=== PATIENT | female | born 1930 | race Caucasian/White ===

== ENCOUNTER → 2016-10-16 | Outpatient (CLI) | payer OTHER, MEDICARE ==
[~2016-10-16] MED LIST: BNT10 PO; CLON0.5T20 PO; DICL50TA3 PO; DULO60CA44 PO; FERR325T5 PO; HYDR-5688 PO; LEVO25TA PO; METO50TA17 PO; MRLP17X; PANT40TA PO; PRED10TA PO; PROM25TA9 PO
[2016-10-16 13:24] LABS: BASO % 0.8 %; BASO ABS # 0.05 K/uL (0-0.2); COMPLETE YES; EOS % 5.3 %; HEMATOCRIT 41.4 % (37-47); IG% 0.2 %; LYMPH % 22.8 %; LYMPH ABS # 1.39 K/uL (1.2-3.4); MEAN CELL VOLUME 96.7 fL (80-100); MEAN CORPUSCULAR HEMOGLOBIN 32.2 pg (25-34); MEAN CORPUSCULAR HGB CONC 33.3 g/dl (32-36); MONO % 10.8 %; NEUT % 60.1 %; PLATELET COUNT 267 K/uL (130-400); RED BLOOD COUNT 4.28 M/uL (4.2-5.4); WHITE BLOOD COUNT 6.09 K/uL (4.8-10.8)
== END | disposition home or self-care (01) ==
LOC: C.LABBC 10:00
PROVIDERS: ATTEND Anesthesiology
DX: Z01.812 Encounter for preprocedural laboratory examination (principal)

== ENCOUNTER → 2016-11-25 | Outpatient (CLI) | payer OTHER, MEDICARE ==
[2016-11-25 17:08] LABS: BASO % 0.7 %; BASO ABS # 0.05 K/uL (0-0.2); COMPLETE YES; EOS % 2.6 %; HEMATOCRIT 41.9 % (37-47); IG% 0.1 %; LYMPH % 24.6 %; LYMPH ABS # 1.78 K/uL (1.2-3.4); MEAN CELL VOLUME 98.4 fL (80-100); MEAN CORPUSCULAR HEMOGLOBIN 32.6 pg (25-34); MEAN CORPUSCULAR HGB CONC 33.2 g/dl (32-36); MEAN PLATELET VOLUME 10.6 fL (7.4-10.4); MONO % 6.5 %; NEUT % 65.5 %; PLATELET COUNT 304 K/uL (130-400); RED BLOOD COUNT 4.26 M/uL (4.2-5.4); WHITE BLOOD COUNT 7.24 K/uL (4.8-10.8)
[2016-11-25 17:45] LABS: ALT/SGPT 22 U/L (12-78); AST/SGOT 14 U/L (15-37); BLOOD UREA NITROGEN 14 mg/dl (7-18); BUN/CREATININE RATIO 15.2 (10-20); CALCIUM 9.1 mg/dl (8.5-10.1); CARBON DIOXIDE 27 mmol/L (21-32); CHLORIDE 105 mmol/L (98-107); CREATININE 0.91 mg/dl (0.60-1.20); GLUCOSE 115 mg/dl (70-99); MAGNESIUM 2.2 mg/dl (1.8-2.4); POTASSIUM 3.9 mmol/L (3.5-5.1); SODIUM 140 mmol/L (136-145)
[2016-11-25 17:56] LABS: ALB/GLOB RATIO 1.3 (0.9-2); ALKALINE PHOSPHATASE 68 U/L (45-117); FERRITIN 54.1 ng/ml (8.0-388.0)
--- NOTE | 2016-12-25 12:52 | CODING QUERY MEDICAL NECESSITY ---
SUPPORTING DIAGNOSIS NEEDED Awilda FONG, A supporting diagnosis is required for the test/procedure performed on this patient in order for us to be reimbursed by the patient's insurance. Please provide a supporting diagnosis for the following test/procedure listed below next to the test name along with your signature. *If there is no additional diagnosis for this patient that would support the following test/procedure please document that below next to the test/procedure. Test(s)/Procedure(s) that require a supporting diagnosis: * ([id number]) VITAMIN D ASSAY DIAGNOSIS: * ([id number]) B12 VITAMIN LEVEL DIAGNOSIS: DATE OF SERVICE: 11/25/16 Provider Signature: Date: Thank you Colin Underwood [facility] Information Management Once completed, please kindly fax back to [phone] For questions please call [phone]
== END | disposition home or self-care (01) ==
LOC: C.LABBC 14:04
PROVIDERS: ATTEND Nurse Practitioner Family
DX: M15.9 Polyosteoarthritis, unspecified (principal); E83.42 Hypomagnesemia; E03.9 Hypothyroidism, unspecified; R53.83 Other fatigue

== ENCOUNTER → 2017-01-27 | Outpatient (CLI) | payer OTHER, MEDICARE ==
[2017-01-27 15:36] LABS: THYROID STIMULATING HORMONE 2.26 uIu/ml (0.300-4.500)
== END | disposition home or self-care (01) ==
LOC: C.LAB1850 13:43
PROVIDERS: ATTEND Nurse Practitioner Family
DX: E89.0 Postprocedural hypothyroidism (principal); E55.9 Vitamin D deficiency, unspecified

== ENCOUNTER → 2017-04-07 | Outpatient (CLI) | payer OTHER, MEDICARE ==
[~2017-04-07] MED LIST changes: -DICL50TA3 PO
[2017-04-07 14:34] LABS: BASO % 1.3 %; BASO ABS # 0.06 K/uL (0-0.2); COMPLETE YES; EOS % 5.3 %; HEMATOCRIT 43.1 % (37-47); IG% 0.2 %; LYMPH % 23.8 %; LYMPH ABS # 1.08 K/uL (1.2-3.4); MEAN CELL VOLUME 98.2 fL (80-100); MEAN CORPUSCULAR HEMOGLOBIN 32.3 pg (25-34); MEAN CORPUSCULAR HGB CONC 32.9 g/dl (32-36); MEAN PLATELET VOLUME 11.2 fL (7.4-10.4); MONO % 7.5 %; NEUT % 61.9 %; PLATELET COUNT 224 K/uL (130-400); RED BLOOD COUNT 4.39 M/uL (4.2-5.4); WHITE BLOOD COUNT 4.54 K/uL (4.8-10.8)
== END | disposition home or self-care (01) ==
LOC: C.LABBC 09:47
PROVIDERS: ATTEND Anesthesiology
DX: Z01.812 Encounter for preprocedural laboratory examination (principal); D84.9 Immunodeficiency, unspecified; M54.16 Radiculopathy, lumbar region; R53.83 Other fatigue

== ENCOUNTER → 2017-04-07 | Outpatient (CLI) | payer OTHER, MEDICARE | END | disposition home or self-care (01) | LOC: C.LABBC 09:26 | PROVIDERS: ATTEND Nurse Practitioner Family | DX: R53.83 Other fatigue (principal) ==

== ENCOUNTER → 2017-06-03 | Outpatient (CLI) | payer OTHER, MEDICARE ==
[2017-06-03 14:54] LABS: ALT/SGPT 23 U/L (12-78); BLOOD UREA NITROGEN 11 mg/dl (7-18); CALCIUM 9.5 mg/dl (8.5-10.1); CARBON DIOXIDE 27 mmol/L (21-32); CHLORIDE 102 mmol/L (98-107); CREATININE 0.85 mg/dl (0.60-1.20); GLUCOSE 122 mg/dl (70-99); MAGNESIUM 2.5 mg/dl (1.8-2.4); POTASSIUM 4.6 mmol/L (3.5-5.1); SODIUM 138 mmol/L (136-145)
[2017-06-03 15:04] LABS: ALB/GLOB RATIO 1.1 (0.9-2); ALKALINE PHOSPHATASE 73 U/L (45-117); AST/SGOT 23 U/L (15-37); FERRITIN 109.1 ng/ml (8.0-388.0)
== END | disposition home or self-care (01) ==
LOC: C.LAB1850 11:37
PROVIDERS: ATTEND Nurse Practitioner Family
DX: E89.0 Postprocedural hypothyroidism (principal); E83.42 Hypomagnesemia; R53.83 Other fatigue; E55.9 Vitamin D deficiency, unspecified

== ENCOUNTER → 2017-07-21 | Outpatient (CLI) | payer OTHER, MEDICARE ==
[2017-07-21 10:37] LABS: BASO % 0.8 %; BASO ABS # 0.05 K/uL (0-0.2); HEMATOCRIT 41.5 % (37-47); IG% 0.2 %; LYMPH % 23.1 %; LYMPH ABS # 1.49 K/uL (1.2-3.4); MEAN CELL VOLUME 100.2 fL (80-100); MEAN CORPUSCULAR HEMOGLOBIN 32.1 pg (25-34); MEAN PLATELET VOLUME 10.7 fL (7.4-10.4); MONO % 6.4 %; NEUT % 63.5 %; PLATELET COUNT 285 K/uL (130-400); RED BLOOD COUNT 4.14 M/uL (4.2-5.4); WHITE BLOOD COUNT 6.45 K/uL (4.8-10.8)
[2017-07-21 10:38] LABS: COMPLETE YES
[2017-07-21 11:30] LABS: MAGNESIUM 2.2 mg/dl (1.8-2.4); THYROID STIMULATING HORMONE 2.48 uIu/ml (0.300-4.500)
== END | disposition home or self-care (01) ==
LOC: C.LAB1850 09:51
PROVIDERS: ATTEND Physician Assistant Medical
DX: Z01.818 Encounter for other preprocedural examination (principal); E83.42 Hypomagnesemia

== ENCOUNTER → 2018-01-02 | Outpatient (CLI) | payer OTHER, MEDICARE ==
[2018-01-02 09:43] LABS: BASO % 0.9 %; BASO ABS # 0.04 K/uL (0-0.2); EOS ABS # 0.23 K/uL (0-0.5); HEMOGLOBIN 13.5 g/dL (12.0-16.0); LYMPH % 25.7 %; LYMPH ABS # 1.18 K/uL (1.2-3.4); MEAN CELL VOLUME 96.7 fL (80-100); MEAN CORPUSCULAR HEMOGLOBIN 31.8 pg (25-34); MEAN CORPUSCULAR HGB CONC 32.9 g/dl (32-36); MEAN PLATELET VOLUME 10.3 fL (7.4-10.4); MONO ABS # 0.32 K/uL (0.11-0.59); NEUT % 61.4 %; NEUT ABS # 2.82 K/uL (1.4-6.5); PLATELET COUNT 239 K/uL (130-400); RED CELL DISTRIBUTION WIDTH CV 13.2 % (11.5-14.5); RED CELL DISTRIBUTION WIDTH SD 47.1 fL (36.4-46.3); WHITE BLOOD COUNT 4.59 K/uL (4.8-10.8)
== END | disposition home or self-care (01) ==
LOC: C.LAB1850 08:51
PROVIDERS: ATTEND Physician Assistant Medical
DX: Z01.812 Encounter for preprocedural laboratory examination (principal); M48.061 Spinal stenosis, lumbar region without neurogenic claudication; M15.9 Polyosteoarthritis, unspecified

== ENCOUNTER 2018-08-21 13:44 | Inpatient (IN) ==
[2018-08-21] MEDS ORDERED: SODIUM CHLORIDE 0.9% 1000ML 2,000 ML IV ONE (13:54)
[2018-08-21] MEDS ORDERED: ONDANSETRON INJ 2 MG/ML 2 ML VIAL ONE (13:54)
[2018-08-21] MEDS ORDERED: ONDANSETRON INJ 2 MG/ML 2 ML VIAL IV STA (13:54)
[2018-08-21] MEDS ORDERED: dilTIAZem HCl 5 MG/ML 5 ML VIAL IV STA (13:56)
[2018-08-21] MEDS ORDERED: dilTIAZem HCl 125 MG in DEXTROSE 5% 100 ML IV STA (13:56)
--- NOTE | 2018-08-21 14:50 | Emergency Department Note ---
Entered by Lorenzo Hong acting as a scribe for Harris Zafar MD History of Present Illness General Chief complaint: Cardiac Assessment Stated complaint: afib Time Seen by Provider: 08/21/18 13:50 Source: patient and EMS Limitations: altered mental status History of Present Illness Onset (ago): day(s) (today) Location: chest Pain Consistency: + other (an episode) Quality: + other (tachycardia) Associated symptoms: + other (Positive for nausea, vomiting, abdominal pain, unresponsiveness, and leg pain. Negative for fever.) The patient is an 88 year old female who presents to the emergency department with complaints of an episode of tachycardia occurring today. Per EMS, the patient is a resident at [facility]. He states that the patient has been nauseous and vomiting for the last week. He notes that EMS arrived to take the patient to the emergency department and he reports that the patient became unresponsive when EMS sat her up from bed. He states that the patient had a heart rate of 200 in the ambulance and had a rhythm of sinus tachycardia. He notes that her blood pressure has been good when lying down and he reports that the patient had an oxygen saturation of 92%. The patient also complains of leg pain and abdominal pain. Per EMS, the patient has not had a fever. He reports that the patient does not have a known history of Afib. HPI limited secondary to AMS. Of note, the patient was given adenosine with no response in the heart rate. She received 15 mg of IV Cardizem with a decrease in her heart rate to about 140. Home Medications Home Medications Medication Instructions Recorded Confirmed Type acetaminophen 500 mg PO Q4 PRN 04/22/18 08/21/18 History duloxetine 60 mg PO DAILY 04/22/18 08/21/18 History ferrous sulfate [FerrouSul] 325 mg PO QAM 04/22/18 08/21/18 History polyethylene glycol 3350 17 g PO DAILY PRN 04/22/18 08/21/18 History levothyroxine [Synthroid] 75 mcg PO DAILYBB 30 Days #30 tab 05/08/18 08/21/18 Rx magnesium oxide 400 mg PO QAM 30 Days #30 tab 05/08/18 08/21/18 Rx amlodipine 5 mg PO DAILY 08/21/18 08/21/18 History clonazepam 0.5 mg PO BID 08/21/18 08/21/18 History famotidine 20 mg PO BID 08/21/18 08/21/18 History metoprolol tartrate 80 mg PO TID 08/21/18 08/21/18 History Allergies Allergy/AdvReac Type Severity Reaction Status Date / Time mirtazapine Allergy Mild ITCHING Verified 08/21/18 14:24 10/17/09 Past Med/Surg History Medical History Diarrhea Toxic encephalopathy (Resolved) HCAP (healthcare-associated pneumonia) (Suspected) Acute hyponatremia (Acute) Falls Mitral regurgitation Abnormal ECG Hypertension (Acute) . 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 Physical Exam Vital Signs Vital Signs - 24 hr 08/21/18 13:49 08/21/18 13:51 08/21/18 13:59 Temperature 36.6 C Temperature Source Oral Sepsis Recent Fever Within 48 Hours No Sepsis New/Unexplained Change in Mental Status No Sepsis Action Taken by Nursing No Action Required Pulse Rate 126 H 145 H 141 H Pulse Rate [Apical] Pulse Rhythm Irregular Pulse Rhythm [Apical] Pulse Strength Normal Respiratory Rate 15 16 18 Respiratory Effort / Characteristics Non-Labored Spontaneous Respiratory Depth Normal Respiratory Pattern Regular Blood Pressure 124/75 124/75 Blood Pressure [Left Arm] Blood Pressure Mean 91 91 Blood Pressure Mean [Left Arm] Blood Pressure Position Lying Blood Pressure Position [Left Arm] Pulse Oximetry 100 100 90 Oxygen Delivery Method Nasal Cannula Nasal Cannula Nasal Cannula Oxygen Flow Rate 4 08/21/18 14:06 08/21/18 14:14 08/21/18 14:16 Temperature Temperature Source Sepsis Recent Fever Within 48 Hours Sepsis New/Unexplained Change in Mental Status Sepsis Action Taken by Nursing Pulse Rate 145 H 151 H 76 Pulse Rate [Apical] Pulse Rhythm Irregular Pulse Rhythm [Apical] Pulse Strength Respiratory Rate 16 18 20 Respiratory Effort / Characteristics Respiratory Depth Respiratory Pattern Blood Pressure 163/95 H Blood Pressure [Left Arm] Blood Pressure Mean 117 Blood Pressure Mean [Left Arm] Blood Pressure Position Blood Pressure Position [Left Arm] Pulse Oximetry 100 100 100 Oxygen Delivery Method Nasal Cannula Nasal Cannula Nasal Cannula Oxygen Flow Rate 4 08/21/18 14:30 08/21/18 14:43 08/21/18 15:10 Temperature Temperature Source Sepsis Recent Fever Within 48 Hours Sepsis New/Unexplained Change in Mental Status Sepsis Action Taken by Nursing Pulse Rate 125 H 110 H Pulse Rate [Apical] 132 H Pulse Rhythm Pulse Rhythm [Apical] Pulse Strength Respiratory Rate 17 15 18 Respiratory Effort / Characteristics Non-Labored Spontaneous Respiratory Depth Normal Respiratory Pattern Regular Blood Pressure 124/67 Blood Pressure [Left Arm] 134/62 Blood Pressure Mean 86 Blood Pressure Mean [Left Arm] 86 Blood Pressure Position Blood Pressure Position [Left Arm] Pulse Oximetry 96 95 97 Oxygen Delivery Method Nasal Cannula Nasal Cannula Nasal Cannula Oxygen Flow Rate 4 08/21/18 15:32 08/21/18 16:00 08/21/18 16:15 Temperature Temperature Source Sepsis Recent Fever Within 48 Hours Sepsis New/Unexplained Change in Mental Status Sepsis Action Taken by Nursing Pulse Rate Pulse Rate [Apical] 119 H 109 H 126 H Pulse Rhythm Pulse Rhythm [Apical] Irregular Pulse Strength Respiratory Rate 14 24 20 Respiratory Effort / Characteristics Non-Labored Spontaneous Labored Non-Labored Spontaneous Respiratory Depth Normal Normal Normal Respiratory Pattern Regular Regular Blood Pressure Blood Pressure [Left Arm] 137/64 153/80 H 156/76 H Blood Pressure Mean Blood Pressure Mean [Left Arm] 88 104 102 Blood Pressure Position Blood Pressure Position [Left Arm] Lying Sitting Sitting Pulse Oximetry 97 100 Oxygen Delivery Method Nasal Cannula Nasal Cannula Nasal Cannula Oxygen Flow Rate 4 4 4 08/21/18 16:30 08/21/18 17:00 08/21/18 17:28 Temperature Temperature Source Sepsis Recent Fever Within 48 Hours Sepsis New/Unexplained Change in Mental Status Sepsis Action Taken by Nursing Pulse Rate 105 H Pulse Rate [Apical] 120 H 116 H Pulse Rhythm Pulse Rhythm [Apical] Pulse Strength Respiratory Rate 20 18 18 Respiratory Effort / Characteristics Spontaneous Spontaneous Respiratory Depth Normal Respiratory Pattern Regular Regular Blood Pressure 123/76 Blood Pressure [Left Arm] 129/63 151/85 H Blood Pressure Mean Blood Pressure Mean [Left Arm] 85 107 Blood Pressure Position Blood Pressure Position [Left Arm] Sitting Lying Pulse Oximetry 93 93 98 Oxygen Delivery Method Nasal Cannula Nasal Cannula Nasal Cannula Oxygen Flow Rate 4 4 4 GENERAL: Patient is in no acute distress. HEENT: No acute trauma, normocephalic atraumatic, mucous membranes dry, no nasal congestion, no scleral icterus. NECK: No stridor, no adenopathy, no meningismus, trachea is midline. LUNGS: Clear to auscultation bilaterally, no wheeze, no rhonchi, breath sounds equal. HEART: Tachycardic with an irregular rhythm, no murmurs. ABDOMEN: Soft, nontender, bowel sounds positive, no hernias, no peritonitis. EXTREMITIES: No cyanosis or edema, full range of motion of all the joints without pain or difficulty, no signs for acute trauma. IO in the left tibia. NEUROLOGIC: Sleepy but awakes to voice, no speech slur, moves all extremities. SKIN: No rash, no jaundice, no diaphoresis. Cool to touch with some mottling of the lower extremities. Course 1349: Past medical records reviewed. The patient was evaluated in room C3, and a complete history and physical examination were performed. 1424: I reevaluated and updated the patient. 1520: I rechecked the patient. 1625: Upon reevaluation, the patient is stable. I discussed the results and treatment plan with the patient. She verbalizes understanding and agreement. I discussed the patient's case with FABIOLA Yousif. The patient will be evaluated for further management and care. 1647: I reevaluated and updated the patient. She is more awake and interactive. Consultations Consultation #1: I reviewed the patient's case with FABIOLA Yousif. She will evaluate the patient for further management. Time: 16:25 Administered Medications Discontinued Medications Diltiazem HCl (Cardizem) 15 mg IV NOW STA Stop: 08/21/18 13:57 Last Admin: 08/21/18 14:15 Dose: 15 mg Diltiazem HCl 125 mg/ Dextrose 125 mls @ 0 mls/hr IV .Q0M STA; Protocol Stop: 08/21/18 13:57 Last Titration: 08/21/18 15:10 Dose: 15 mg/hr, 15 mls/hr Titration: 08/21/18 14:39 Dose: 10 mg/hr, 10 mls/hr Admin: 08/21/18 14:15 Dose: 5 mg/hr, 5 mls/hr Sodium Chloride (Nss 1000ml) 2,000 mls @ 999 mls/hr IV .Q2H1M ONE Stop: 08/21/18 15:54 Last Infusion: 08/21/18 15:51 Dose: 0 mls/hr Admin: 08/21/18 14:07 Dose: 999 mls/hr Potassium Chloride (K Raymond / Wtr) 10 meq in 100 mls @ 100 mls/hr IV ONE ONE Stop: 08/21/18 16:13 Last Infusion: 08/21/18 16:37 Dose: 0 mls/hr Admin: 08/21/18 15:36 Dose: 100 mls/hr Lactated Ringer's (Lr) 1,000 mls @ 999 mls/hr IV .Q1H1M STA Stop: 08/21/18 17:30 Last Admin: 08/21/18 17:08 Dose: 999 mls/hr Morphine Sulfate (Morphine Sulfate) 2 mg IV NOW STA Stop: 08/21/18 15:05 Last Admin: 08/21/18 15:07 Dose: 2 mg Morphine Sulfate (Morphine Sulfate) 2 mg IV Q30M PRN PRN Reason: Pain Stop: 09/04/18 16:19 Last Admin: 08/21/18 16:31 Dose: 2 mg Ondansetron HCl (Zofran) 4 mg IV NOW STA Stop: 08/21/18 13:55 Last Admin: 08/21/18 14:07 Dose: 4 mg Ondansetron HCl (Zofran) Confirm Administered Dose 4 mg .ROUTE .STK-MED ONE Stop: 08/21/18 13:55 Last Admin: 08/21/18 14:07 Dose: Not Given Medical Decision Making Differential Diagnosis Differential diagnoses include: dehydration, dysrhythmia, [place], bowel obstruction , diverticulitis/colitis, pneumonia, UTI, renal/liver failure, viral illness. Medical Records Attestation: I reviewed the patient's medical records. Home Medications Current Medication List: was personally reviewed by me Laboratory Data Attestation: I reviewed the patient's lab results. Result diagrams: 08/21/18 13:35 08/21/18 13:35 Lab Results 08/21/18 08/21/18 08/21/18 Range/Units 13:35 13:35 13:35 WBC 7.80 (4.8-10.8) K/uL RBC 4.56 (4.2-5.4) M/uL Hgb 14.8 (12.0-16.0) g/dL POC Hgb (12.0-16.0) g/dl Hct 45.0 (37-47) % POC Hct (37-47) % MCV 98.7 (80-100) fL MCH 32.5 (25-34) pg MCHC 32.9 (32-36) g/dL RDW Std Deviation 54.5 H (36.4-46.3) fL RDW Coeff of Zeyad 15.1 H (11.5-14.5) % Plt Count 390 (130-400) K/uL MPV 9.9 (7.4-10.4) fL Immature Gran % (Auto) 0.3 % Neut % (Auto) 78.0 % Lymph % (Auto) 13.5 % Collin % (Auto) 6.5 % Eos % (Auto) 1.2 % Baso % (Auto) 0.5 % Immature Gran # (Auto) 0.02 (0.00-0.02) K/uL Neut # (Auto) 6.09 (1.4-6.5) K/uL Lymph # (Auto) 1.05 L (1.2-3.4) K/uL Collin # (Auto) 0.51 (0.11-0.59) K/uL Eos # (Auto) 0.09 (0-0.5) K/uL Baso # (Auto) 0.04 (0-0.2) K/uL PT 11.1 (9.0-12.0) Seconds INR 1.1 (0.9-1.1) APTT 24.1 (21.0-31.0) Seconds PTT Ratio 0.9 POC Sodium (135-144) mEq/L Sodium 131 L (136-145) mmol/L POC Potassium (3.3-5.0) mEq/L Potassium 3.0 L (3.5-5.1) mmol/L POC Chloride (101-112) mEq/L Chloride 98 (98-107) mmol/L Carbon Dioxide 22 (21-32) mmol/L POC Total CO2 (24-31) mEq/l Anion Gap 10.0 (3-11) POC Anion Gap (16-25) mmol/L POC BUN (7-18) mg/dl BUN 10 (7-18) mg/dl Creatinine 0.76 (0.6-1.2) mg/dl POC Creatinine (0.6-1.3) mg/dl Est Cr Clr Drug Dosing 45.7 ml/min Est GFR ( Amer) 81.2 Est GFR (Non-Af Amer) 70.0 BUN/Creatinine Ratio 12.5 (10-20) Glucose 137 H (70-99) mg/dl POC Glucose (other) (70-99) mg/dl Lactate (0.4-2.0) mmol/L Calcium 8.6 (8.5-10.1) mg/dl POC Ioniz Calcium Vida (1.12-1.32) mmol/l Magnesium 2.0 (1.8-2.4) mg/dl Total Bilirubin 0.4 (0.2-1) mg/dl AST 23 (15-37) U/L ALT 13 (12-78) U/L Alkaline Phosphatase 115 (45-117) U/L Troponin I 0.023 (0-0.045) ng/ml Total Protein 7.0 (6.4-8.2) gm/dl Albumin 3.4 (3.4-5.0) gm/dl Globulin 3.6 (2.5-4.0) gm/dl Albumin/Globulin Ratio 0.9 (0.9-2) Lipase (73-393) U/L Specimen Hemolysis Urine Color Urine Appearance (Clear) Urine pH (4.5-7.5) Ur Specific [place] (1.000-1.030) Urine Protein (Negative) Urine Glucose (UA) (Negative) Urine Ketones (Negative) Urine Blood (Negative) Urine Nitrite (Negative) Urine Bilirubin (Negative) Urine Urobilinogen (Negative) Ur Leukocyte Esterase (Negative) Urine WBC (Auto) (0-5) /hpf Urine RBC (Auto) (0-4) /hpf U Hyaline Cast (Auto) (0-5) /lpf U Epithel Cells (Auto) (0-5) /lpf Urine Bacteria (Auto) (Negative) 08/21/18 08/21/18 08/21/18 Range/Units 13:54 14:40 15:00 WBC (4.8-10.8) K/uL RBC (4.2-5.4) M/uL Hgb (12.0-16.0) g/dL POC Hgb 15.0 (12.0-16.0) g/dl Hct (37-47) % POC Hct 44 (37-47) % MCV (80-100) fL MCH (25-34) pg MCHC (32-36) g/dL RDW Std Deviation (36.4-46.3) fL RDW Coeff of Zeyad (11.5-14.5) % Plt Count (130-400) K/uL MPV (7.4-10.4) fL Immature Gran % (Auto) % Neut % (Auto) % Lymph % (Auto) % Collin % (Auto) % Eos % (Auto) % Baso % (Auto) % Immature Gran # (Auto) (0.00-0.02) K/uL Neut # (Auto) (1.4-6.5) K/uL Lymph # (Auto) (1.2-3.4) K/uL Collin # (Auto) (0.11-0.59) K/uL Eos # (Auto) (0-0.5) K/uL Baso # (Auto) (0-0.2) K/uL PT (9.0-12.0) Seconds INR (0.9-1.1) APTT (21.0-31.0) Seconds PTT Ratio POC Sodium 135 (135-144) mEq/L Sodium (136-145) mmol/L POC Potassium 2.6 L (3.3-5.0) mEq/L Potassium (3.5-5.1) mmol/L POC Chloride 93 L (101-112) mEq/L Chloride (98-107) mmol/L Carbon Dioxide (21-32) mmol/L POC Total CO2 25 (24-31) mEq/l Anion Gap (3-11) POC Anion Gap 20.0 (16-25) mmol/L POC BUN 9 (7-18) mg/dl BUN (7-18) mg/dl Creatinine (0.6-1.2) mg/dl POC Creatinine 0.6 (0.6-1.3) mg/dl Est Cr Clr Drug Dosing ml/min Est GFR ( Amer) Est GFR (Non-Af Amer) BUN/Creatinine Ratio (10-20) Glucose (70-99) mg/dl POC Glucose (other) 143 H (70-99) mg/dl Lactate 2.7 H* (0.4-2.0) mmol/L Calcium (8.5-10.1) mg/dl POC Ioniz Calcium Vida 0.95 L (1.12-1.32) mmol/l Magnesium (1.8-2.4) mg/dl Total Bilirubin (0.2-1) mg/dl AST (15-37) U/L ALT (12-78) U/L Alkaline Phosphatase (45-117) U/L Troponin I (0-0.045) ng/ml Total Protein (6.4-8.2) gm/dl Albumin (3.4-5.0) gm/dl Globulin (2.5-4.0) gm/dl Albumin/Globulin Ratio (0.9-2) Lipase 58 L (73-393) U/L Specimen Hemolysis Urine Color Urine Appearance (Clear) Urine pH (4.5-7.5) Ur Specific [place] (1.000-1.030) Urine Protein (Negative) Urine Glucose (UA) (Negative) Urine Ketones (Negative) Urine Blood (Negative) Urine Nitrite (Negative) Urine Bilirubin (Negative) Urine Urobilinogen (Negative) Ur Leukocyte Esterase (Negative) Urine WBC (Auto) (0-5) /hpf Urine RBC (Auto) (0-4) /hpf U Hyaline Cast (Auto) (0-5) /lpf U Epithel Cells (Auto) (0-5) /lpf Urine Bacteria (Auto) (Negative) 08/21/18 Range/Units 15:50 WBC (4.8-10.8) K/uL RBC (4.2-5.4) M/uL Hgb (12.0-16.0) g/dL POC Hgb (12.0-16.0) g/dl Hct (37-47) % POC Hct (37-47) % MCV (80-100) fL MCH (25-34) pg MCHC (32-36) g/dL RDW Std Deviation (36.4-46.3) fL RDW Coeff of Zeyad (11.5-14.5) % Plt Count (130-400) K/uL MPV (7.4-10.4) fL Immature Gran % (Auto) % Neut % (Auto) % Lymph % (Auto) % Collin % (Auto) % Eos % (Auto) % Baso % (Auto) % Immature Gran # (Auto) (0.00-0.02) K/uL Neut # (Auto) (1.4-6.5) K/uL Lymph # (Auto) (1.2-3.4) K/uL Collin # (Auto) (0.11-0.59) K/uL Eos # (Auto) (0-0.5) K/uL Baso # (Auto) (0-0.2) K/uL PT (9.0-12.0) Seconds INR (0.9-1.1) APTT (21.0-31.0) Seconds PTT Ratio POC Sodium (135-144) mEq/L Sodium (136-145) mmol/L POC Potassium (3.3-5.0) mEq/L Potassium (3.5-5.1) mmol/L POC Chloride (101-112) mEq/L Chloride (98-107) mmol/L Carbon Dioxide (21-32) mmol/L POC Total CO2 (24-31) mEq/l Anion Gap (3-11) POC Anion Gap (16-25) mmol/L POC BUN (7-18) mg/dl BUN (7-18) mg/dl Creatinine (0.6-1.2) mg/dl POC Creatinine (0.6-1.3) mg/dl Est Cr Clr Drug Dosing ml/min Est GFR ( Amer) Est GFR (Non-Af Amer) BUN/Creatinine Ratio (10-20) Glucose (70-99) mg/dl POC Glucose (other) (70-99) mg/dl Lactate (0.4-2.0) mmol/L Calcium (8.5-10.1) mg/dl POC Ioniz Calcium Vida (1.12-1.32) mmol/l Magnesium (1.8-2.4) mg/dl Total Bilirubin (0.2-1) mg/dl AST (15-37) U/L ALT (12-78) U/L Alkaline Phosphatase (45-117) U/L Troponin I (0-0.045) ng/ml Total Protein (6.4-8.2) gm/dl Albumin (3.4-5.0) gm/dl Globulin (2.5-4.0) gm/dl Albumin/Globulin Ratio (0.9-2) Lipase (73-393) U/L Specimen Hemolysis Urine Color Yellow Urine Appearance Clear (Clear) Urine pH 5.5 (4.5-7.5) Ur Specific [place] 1.026 (1.000-1.030) Urine Protein 1+ H (Negative) Urine Glucose (UA) Negative (Negative) Urine Ketones 1+ H (Negative) Urine Blood Negative (Negative) Urine Nitrite Negative (Negative) Urine Bilirubin Negative (Negative) Urine Urobilinogen Negative (Negative) Ur Leukocyte Esterase Negative (Negative) Urine WBC (Auto) 1-5 (0-5) /hpf Urine RBC (Auto) 5-10 H (0-4) /hpf U Hyaline Cast (Auto) 5-10 H (0-5) /lpf U Epithel Cells (Auto) >30 H (0-5) /lpf Urine Bacteria (Auto) Negative (Negative) Imaging Data Radiologist's Impression: Radiology results as stated below per my review and the radiologist's interpretation: XR chest 1V portable FINDINGS: The bones soft tissues and hemidiaphragms are normal. The cardiomediastinal silhouette is normal. The lungs are clear. The pulmonary vasculature is normal. IMPRESSION: Negative chest. The above report was generated using voice recognition software. It may contain grammatical, syntax or spelling errors. Electronically signed by: Ernie Almaguer M.D. 08/21/2018 3:[address] abd pelvis wo con FINDINGS: Lung bases demonstrate mild bibasilar dependent atelectasis. Several small hepatic cysts with moderate out outer capsular cortical scarring of the liver unchanged. Chronic fullness of the biliary ductal system. Prior cholecystectomy. Pancreas is fatty replaced. Kidneys negative for calcification or hydronephrosis. The bowel pattern within the abdomen and pelvis is nonobstructive throughout. Bladder is midline. There are no contained calcifications. Mild scattered colonic diverticulosis. No evidence for acute diverticulitis. The appendix is normal. Prior total left hip arthroplasty. No free fluid within the pelvic cul- de-sac. Trace amount of peripancreatic infiltrative change in the pancreatic head enhancing process. No evidence for abscess collection or pseudocyst formation. IMPRESSION: 1. Possible mild chronic pancreatitis of the pancreatic head and uncinate process. 2. No evidence for abscess collection or obstructive change. 3. Chronic colonic diverticulosis with no evidence for acute diverticulitis. 4. Nonobstructive bowel pattern. 5. Prior cholecystectomy with mild chronic prominence of the biliary ductal system. This is unchanged compared to prior CT exams. 6. Mild bibasilar dependent atelectasis. The above report was generated using voice recognition software. It may contain grammatical, syntax or spelling errors. Electronically signed by: Ernie Almaguer M.D. 08/21/2018 3:33 PM ECG Data Attestation: I personally reviewed and interpreted this ECG as follows: Indication: tachycardia Rate (beats per minute): 130 Rhythm: atrial fibrillation Findings: no PVC and no ST elevation Additional Comments: Nonspecific diffuse ST change. Blood Pressure Blood Pressure Findings: Normal blood pressure Blood Pressure Disposition: did not require urgent referral MDM Narrative There is no leukocytosis or concerning anemia. No kidney failure. Potassium was low. Urinalysis does not show evidence for infection. No coagulopathy. No evidence for hepatitis or pancreatitis. Lactic acid level was elevated at 2.7, I suspect this is from dehydration. Blood cultures were ordered, these are pending. Chest film does not show pneumonia or CHF. Abdominal and pelvis CT shows evidence for chronic pancreatitis, no bowel obstruction, no acute surgical process noted. EKG shows rapid A. fib, no acute ischemia. Cardiac enzyme testing x1 is not consistent with acute cardiac injury. The patient presented tachycardic. She seemed quite dehydrated. She had some mottling of her lower extremities and her skin was cool to the touch. She was aggressively managed. She was placed in a kashmir hugger. She was given a bolus of IV Cardizem, she was placed on a Cardizem drip. This medication did help control the heart rate. The patient received 2 L of IV saline for hydration, she received 1 L of lactated Ringer's for hydration. She was given IV potassium, IV Zofran and IV morphine. The patient is more awake and interactive. Her blood pressure is adequate. She does seem to be improving. Her heart rate is more controlled. A hospital stay is warranted. I spoke to the patient and her daughter. I talked with the case management. The on-call hospitalist was consulted. At this point, I am not sure what has led all the nausea and vomiting. I do think she is quite dehydrated though and in need of further IV fluids. Impression & Plan Episode of unresponsiveness, Dehydration, Tachycardia, Atrial fibrillation, rapid, Vomiting Critical Care Time I have personally spent greater than 40 minutes of critical care time in the direct management of this patient. This includes bedside care, interpretation of diagnostic studies and testing, discussion with consultants, the patient, and family members, and other required patient management activities. This 40 minutes is in excess of all separately billable procedures. Critical Care Time: Yes Total Critical Care Time: 40 Discharge Plan Visit Data *Final* Discharge Date/Time: 08/21/18 17:28 Chief Complaint: Cardiac Assessment Stated Complaint: afib ED Provider: Harris Zafar Discharge Problem: Episode of unresponsiveness, Dehydration, Tachycardia, Atrial fibrillation, rapid, Vomiting Patient Disposition: Admitted As Inpatient Discharge Instructions Interventions: ED Discharge Assessment Last Done: 08/21/18 17:28 The kbibe's documentation has been prepared under my direction and personally reviewed by me in its entirety. I confirm that the note above accurately reflects all work, treatment, procedures, and medical decision making performed by me.
[2018-08-21 14:52] LABS: iSTAT Ionized Calcium 0.95 mmol/l (1.12-1.32)
[2018-08-21 15:02] LABS: Basophils # (auto) 0.04 K/uL (0-0.2); Basophils % (auto) 0.5 %; Eosinophils # (auto) 0.09 K/uL (0-0.5); Eosinophils % (auto) 1.2 %; Hemoglobin 14.8 g/dL (12.0-16.0); Immature Granulocytes # (auto) 0.02 K/uL (0.00-0.02); Immature Granulocytes % (auto) 0.3 %; Lymphocytes # (auto) 1.05 K/uL (1.2-3.4); Lymphocytes % (auto) 13.5 %; Mean Corpuscular Hgb Conc 32.9 g/dL (32-36); Mean Corpuscular Volume 98.7 fL (80-100); Mean Platelet Volume 9.9 fL (7.4-10.4); Monocytes # (auto) 0.51 K/uL (0.11-0.59); Monocytes % (auto) 6.5 %; Neutrophils # (auto) 6.09 K/uL (1.4-6.5); Platelet Count 390 K/uL (130-400); RDW Coefficient of Variation 15.1 % (11.5-14.5); RDW Standard Deviation 54.5 fL (36.4-46.3); Red Blood Count 4.56 M/uL (4.2-5.4)
[2018-08-21] MEDS ORDERED: MoRPHine SULFATE 2 MG/ML CARP IV STA (15:04)
[2018-08-21] MEDS ORDERED: POTASSIUM CHLORIDE / WTR 10 MEQ/100 ML PLCT IV ONE (15:14)
[2018-08-21 15:24] LABS: Albumin Globulin Ratio 0.9 (0.9-2); Albumin Level 3.4 gm/dl (3.4-5.0); BUN Creatinine Ratio 12.5 (10-20); Bilirubin,Total 0.4 mg/dl (0.2-1); Calcium 8.6 mg/dl (8.5-10.1); Creatinine Clr Calc Pharmacy 45.7 ml/min; Est GFR (African American) 81.2; Globulin 3.6 gm/dl (2.5-4.0); Troponin I 0.023 ng/ml (0-0.045)
--- NOTE | 2018-08-21 15:34 | CT Scan Report ---
CT abd pelvis wo con CT DOSE: 380.11 mGy.cm HISTORY: Pain. Obstruction. POSS OBSTR TECHNIQUE: Multiaxial CT images of the abdomen and pelvis were performed without contrast. A dose lo wering technique was utilized adhering to the principles of ALARA. COMPARISON STUDY: 07/31/2013 FINDINGS: Lung bases demonstrate mild bibasilar dependent atelectasis. Several small hepatic cysts wi th moderate out outer capsular cortical scarring of the liver unchanged. Chronic fullness of the bili cece ductal system. Prior cholecystectomy. Pancreas is fatty replaced. Kidneys negative for calcification or hydronephrosis. The bowel pattern within the abdomen and pelvis is nonobstructive throughout. Bladder is midline. The re are no contained calcifications. Mild scattered colonic diverticulosis. No evidence for acute dive rticulitis. The appendix is normal. Prior total left hip arthroplasty. No free fluid within the pelvi c cul-de-sac. Trace amount of peripancreatic infiltrative change in the pancreatic head enhancing pro cess. No evidence for abscess collection or pseudocyst formation. IMPRESSION: 1. Possible mild chronic pancreatitis of the pancreatic head and uncinate process. 2. No evidence for abscess collection or obstructive change. 3. Chronic colonic diverticulosis with no evidence for acute diverticulitis. 4. Nonobstructive bowel pattern. 5. Prior cholecystectomy with mild chronic prominence of the biliary ductal system. This is unchanged compared to prior CT exams. 6. Mild bibasilar dependent atelectasis. The above report was generated using voice recognition software. It may contain grammatical, syntax or spelling errors. Electronically signed by: Ernie Almaguer M.D. 08/21/2018 3:33 PM
--- NOTE | 2018-08-21 15:38 | XRay Report ---
XR chest 1V portable CLINICAL HISTORY: weakness dyspnea COMPARISON STUDY: 05/02/2018 FINDINGS: The bones soft tissues and hemidiaphragms are normal. The cardiomediastinal silhouette is n ormal. The lungs are clear. The pulmonary vasculature is normal. IMPRESSION: Negative chest. The above report was generated using voice recognition software. It may contain grammatical, syntax or spelling errors. Electronically signed by: Ernie Almaguer M.D. 08/21/2018 3:37 PM
[2018-08-21 15:57] LABS: INR 1.1 (0.9-1.1); Partial Thromboplastin Ratio 0.9; Partial Thromboplastin Time 24.1 Seconds (21.0-31.0); Prothrombin Time 11.1 Seconds (9.0-12.0)
[2018-08-21 16:10] LABS: Appearance Urine Clear (Clear); Bacteria Urine Automated Negative (Negative); Bilirubin Urine Negative (Negative); Color Urine Yellow; Epithelial Cell Urine Auto >30 /lpf (0-5); Glucose Urine UA Negative (Negative); Ketones Urine 1+ (Negative); Leukocyte Esterase Urine Negative (Negative); Nitrite Urine Negative (Negative); Protein Urine 1+ (Negative); Specific Gravity Urine 1.026 (1.000-1.030); Urobilinogen Urine Negative (Negative); pH Urine 5.5 (4.5-7.5)
[2018-08-21] MEDS ORDERED: MoRPHine SULFATE 2 MG/ML CARP IV PRN (16:20)
[2018-08-21] MEDS ORDERED: LACTATED RINGER'S 1,000 ML IV STA (16:30)
--- NOTE | 2018-08-21 16:55 | History & Physical Report ---
Date of Service August 21, 2018 Assessment & Plan (1) Atrial fibrillation, rapid: -Admit to telemetry -New onset A. fib with RVR -Patient was admitted in April 2018 where she did have a bout of possibly A. fib versus atrial ectopy, however it was determined that she had atrial ectopy at that point in time and not A. fib. -Did not take her morning medications today -Started on a diltiazem drip, continue, likely can transition to p.o. meds tomorrow morning -Cardiology consulted, Dr. Merino. -Atrial fib likely exacerbated by acute onset of dehydration with associated GI illness including nausea, vomiting, diarrhea. Missed metoprolol and amlodipine today. -IO access in the LLE, was obtained in EMS due to patient's poor IV access. Maintain. -Lactate 2.7 at time of admission - will resolve with hydration (2) Dehydration: -LR infusing at bedside, now s/p 3 L: continue at 125 mL/h x 1 day -Encourage p.o. hydration once able to, start with clear liquid diet -Continue antiemetics with Zofran IV (3) Diarrhea: -Ongoing times 5 days, no recent antibiotic use, will check C. difficile with history of C. difficile colitis -IV fluids as above, bland diet, other supportive care -Start probiotic (4) Vomiting: (5) Hypokalemia: -K += 3.0 at time of admission -Being replaced in the ER via IV, follow with a.m. PRP (6) Acute hyponatremia: -Na+ = 131 at time of admission -Secondary to acute GI loss, follow a.m. PRP (7) Hypertension: -Continue amlodipine 5 mg daily, metoprolol tartrate 80 mg p.o. TID -Patient missed medications today, therefore may be having some rebound tachycardia due to missing of beta-blockade. (8) Mitral regurgitation: -Murmur heard on exam, stable (9) Iron deficiency: -Continue iron supplementation -Guaiac stool x1 to rule out GI bleed with dark stools as per HPI (10) GERD (gastroesophageal reflux disease): -Continue famotidine 20 mg p.o. bid (11) Arthritis: -Stable, uses walker at baseline -PT/OT eval's (12) Anxiety: -Can continue clonazepam 0.5 mg p.o. bid, patient did take this earlier today when she was starting to feel anxious about her dizziness and heart beating so fast. (13) DVT prophylaxis: -malena on RLE d/t IO assess on the LLE, lovenox subq History of Present Illness Chief Complaint: Generalized ill feeling, n/v/d Primary Care Provider: [facility] This is a 88 yo F with PMHx of HTN, HLD, mitral regurgitation, hx of falls, hyponatremia, GERD, metabolic disorder, osteoarthritis, iron deficiency anemia who presents from [facility] with increase in dizziness, lightheadedness and found to be tachycardic with a HR of 200 in EMS. She reports having nausea, vomiting and diarrhea and progressively getting weak for about 5 days now. She has not been able to tolerate oral intake over the past 5 days and feels dehydrated. She also became short of breath today and felt her heart beating out of her chest. She cannot confirm if she has had heart palpitations in the past week. She also denies LOC or any sustained trauma recently. Patient notes that her stools have been dark however she is on an iron tablet, no BRBPR, no hx of GI bleed. She is unaware of any sick contacts with GI illnesses. Patient uses a walker to ambulate at baseline. She does not normally require supplemental O2. Pt was found to be in afib with RVR on EKG in the ER. NA 131, K+ 3.0, lactate was 2.7 upon arrival. She is now s/p 1L fluids, and was started on diltiazem gtt. Allergies Allergy/AdvReac Type Severity Reaction Status Date / Time mirtazapine Allergy Mild ITCHING Verified 08/21/18 14:24 10/17/09 Home Medications Home Medications Medication Instructions Recorded Confirmed Type acetaminophen 500 mg PO Q4 PRN 04/22/18 08/21/18 History duloxetine 60 mg PO DAILY 04/22/18 08/21/18 History ferrous sulfate [FerrouSul] 325 mg PO QAM 04/22/18 08/21/18 History polyethylene glycol 3350 17 g PO DAILY PRN 04/22/18 08/21/18 History levothyroxine [Synthroid] 75 mcg PO DAILYBB 30 Days #30 tab 05/08/18 08/21/18 Rx magnesium oxide 400 mg PO QAM 30 Days #30 tab 05/08/18 08/21/18 Rx amlodipine 5 mg PO DAILY 08/21/18 08/21/18 History clonazepam 0.5 mg PO BID 08/21/18 08/21/18 History famotidine 20 mg PO BID 08/21/18 08/21/18 History metoprolol tartrate 50 mg PO TID 08/21/18 08/21/18 History Past Med/Surg History Medical History Diarrhea Toxic encephalopathy (Resolved) HCAP (healthcare-associated pneumonia) (Suspected) Acute hyponatremia (Acute) Falls Mitral regurgitation Abnormal ECG Hypertension (Acute) . 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) Hypomagnesemia (Acute) Hypothyroidism (Chronic) Orthostasis (Acute) Spinal stenosis (Acute) Weakness (Acute) Depression (Inactive) Surgical History History of cataract surgery (Chronic) History of tonsillectomy and adenoidectomy (Chronic) Social History Current Living Situation: [place] Other Information That Helps Us Care for You: No Feels Safe at Home: Yes Safety Concerns: Feels Safe At This Time Smoking Status: Never smoker Hx Alcohol Use: No Hx Substance Use: No Beliefs That Will Affect Care: None Preferred Language: Thai Communication Ability: Effective Review of Systems Constitutional: No fever, sweats or chills Eyes: No diplopia, no worsening or blurred vision ENT: normal hearing, no trouble swallowing Respiratory: No cough, sputum, dyspneaat rest, + became slightly short of breath today Cardiovascular: See HPI. No chest pain or tightness, + dizziness Abdomen: No pain, nausea, vomiting, diarrhea or constipation Musculoskeletal: No joint pain, calf pain, swelling Neurologic: No weakness, numbness/tingling, or balance problems, no recent falls Psychiatric: No anxiety or depression Skin: No rash or itch Physical Exam 2 Vital Signs (Past 24 Hours): Last Vital Signs Temp 36.6 C 08/21/18 13:51 Pulse 120 H 08/21/18 16:30 Resp 20 08/21/18 16:30 BP 129/63 08/21/18 16:30 Pulse Ox 93 08/21/18 16:30 Physical Exam: General: awake, alert, no apparent distress Head: Normocephalic, atraumatic ENT: PERRL, EOMI, eyes watering but no purulent drainage, no pharyngeal exudate , mucous membranes moist Chest: Clear to auscultation, on 4L via NC, no adventitious breath sounds Cardiac: Irregularly irregular, HR = 110-120 at bedside, + faint systolic murmur grade 2/6, no JVD, normal peripheral pulses, good capillary refill Abdominal: NABS x 4 quadrants, soft, nontender to palpation, no rebound, guarding or tenderness Extremities: + IO access in the LLE, right toe with abrasions over DIPs, no peripheral edema or erythema, calfs nontender to palpation Psych: Normal mood and affect Neuro: AAO x 3, strength intact bilaterally and related 5/5, no motor deficits, speech is clear, no peripheral sensory deficits Constitutional: WD/WN, vitals as above Eyes: normal visual hunter by confrontation and + anicteric sclerae Neck: normal visual inspection and trachea midline Respiratory: normal respiratory effort, lungs clear to auscultation Cardiovascular: Rate/Rhythm: regular rate and regular rhythm Gastrointestinal (Abdomen): Inspection/Auscultation: abdomen not distended Percussion/Palpation: + abdomen tender (pain in LLQ, mild) and abdomen soft Musculoskeletal: Head/Neck/Chest: normocephalic and head atraumatic Neg for peripheral LE edema, + pedal pulses Skin: no rashes, warm and dry + excoriations (b/l toes, R>L) Neurologic: awake; not confused Speech / Cognition: normal speech Psychiatric: A+Ox3, euthymic affect Lymphatic: Exam as done by Lynette Montoya DO Results & Data Diagnostic Findings CT abd pelvis wo con CT DOSE: 380.11 mGy.cm HISTORY: Pain. Obstruction. POSS OBSTR TECHNIQUE: Multiaxial CT images of the abdomen and pelvis were performed without contrast. A dose lowering technique was utilized adhering to the principles of ALARA. COMPARISON STUDY: 07/31/2013 FINDINGS: Lung bases demonstrate mild bibasilar dependent atelectasis. Several small hepatic cysts with moderate out outer capsular cortical scarring of the liver unchanged. Chronic fullness of the biliary ductal system. Prior cholecystectomy. Pancreas is fatty replaced. Kidneys negative for calcification or hydronephrosis. The bowel pattern within the abdomen and pelvis is nonobstructive throughout. Bladder is midline. There are no contained calcifications. Mild scattered colonic diverticulosis. No evidence for acute diverticulitis. The appendix is normal. Prior total left hip arthroplasty. No free fluid within the pelvic cul- de-sac. Trace amount of peripancreatic infiltrative change in the pancreatic head enhancing process. No evidence for abscess collection or pseudocyst formation. IMPRESSION: 1. Possible mild chronic pancreatitis of the pancreatic head and uncinate process. 2. No evidence for abscess collection or obstructive change. 3. Chronic colonic diverticulosis with no evidence for acute diverticulitis. 4. Nonobstructive bowel pattern. 5. Prior cholecystectomy with mild chronic prominence of the biliary ductal system. This is unchanged compared to prior CT exams. 6. Mild bibasilar dependent atelectasis. XR chest 1V portable CLINICAL HISTORY: weakness dyspnea COMPARISON STUDY: 05/02/2018 FINDINGS: The bones soft tissues and hemidiaphragms are normal. The cardiomediastinal silhouette is normal. The lungs are clear. The pulmonary vasculature is normal. IMPRESSION: Negative chest. ECG Additional Comments: 21-AUG-2018 13:51:58 [facility] Atrial fibrillation with rapid ventricular response ST & T wave abnormality, consider lateral ischemia Abnormal ECG When compared with ECG of 06-MAY-2018 00:38, Atrial fibrillation has replaced Sinus rhythm Vent. rate has increased BY 66 BPM Criteria for Anterior infarct are no longer Present T wave inversion less evident in Anterior leads Inverted T waves have replaced nonspecific T wave abnormality in Lateral leads Vent. rate 130 BPM VA interval * ms QRS duration 82 ms QT/QTc 334/491 ms P-R-T axes * 58 72 Code Status & VTE Plan Code Status DNR Supervising Physician Co-Signing Physician Notes Pt seen and examined by me. Denies chest pain or SOB. Feeling improved s/p IVF. Denies abd pain or emesis since arrival to the ED. States no longer having diarrhea, but this was apparently only an issue at night. States she is being treated by a "foot doctor" who comes to her SNF for her LE skin ulcerations. Agree with HPI/ROS as noted by PA See above for my exam in PE section Agree with plan as outlined above No clear infection, possibly viral GE Dehydration, monitor on IVF Likely the cause for elevated lactic acid HypoK in the setting of v/d, monitor Wound care c/s for feet excoriations Afib--?? new dx Monitor on dilt gtt _ (1) Mitral regurgitation Cardiac valve disease etiology: nonrheumatic Qualified Code(s): I34.0 - Nonrheumatic mitral (valve) insufficiency (2) GERD (gastroesophageal reflux disease) Esophagitis presence: esophagitis presence not specified Qualified Code(s): K21.9 - Gastro-esophageal reflux disease without esophagitis (3) Hypertension Hypertension type: unspecified Qualified Code(s): I10 - Essential (primary) hypertension (4) Vomiting Nausea presence: with nausea Vomiting Intractability: unspecified Vomiting type: unspecified Qualified Code(s): R11.2 - Nausea with vomiting, unspecified
[2018-08-21] MEDS ORDERED: POLYETHYLENE (MIRALAX) 17 GM PACK PO PRN (18:11)
[2018-08-21] MEDS ORDERED: ONDANSETRON INJ 2 MG/ML 2 ML VIAL IV PRN (18:11)
[2018-08-21] MEDS ORDERED: LACTATED RINGER'S 1,000 ML IV SCH (18:22)
[2018-08-21] MEDS: dilTIAZem HCl 125 MG in DEXTROSE 5% 100 ML IV SCH ×2 (18:41→23:12)
[2018-08-21] MEDS: FAMOTIDINE 20 MG TAB PO SCH (20:10)
[2018-08-21] MEDS: ACETAMINOPHEN 500 MG TAB PO PRN (20:10)
[2018-08-21] MEDS: METOPROLOL TARTRATE 50 MG TAB PO SCH (20:10)
[2018-08-22] MEDS: LEVOTHYROXINE SODIUM 75 MCG TABLET PO SCH (05:37)
[2018-08-22] MEDS: ACETAMINOPHEN 500 MG TAB PO PRN ×3 (05:42→18:35)
[2018-08-22 07:17] LABS: Hematocrit (blood only) 48.8 % (37-47); Hemoglobin 16.1 g/dL (12.0-16.0); Mean Corpuscular Volume 100.4 fL (80-100); Mean Platelet Volume 10.8 fL (7.4-10.4); Platelet Count 302 K/uL (130-400); RDW Coefficient of Variation 15.6 % (11.5-14.5); RDW Standard Deviation 57.8 fL (36.4-46.3); Red Blood Count 4.86 M/uL (4.2-5.4); White Blood Count 9.55 K/uL (4.8-10.8)
[2018-08-22 08:02] LABS: Albumin Level 3.8 gm/dl (3.4-5.0); BUN Creatinine Ratio 5.4 (10-20); Bilirubin,Total 0.7 mg/dl (0.2-1); Calcium 8.7 mg/dl (8.5-10.1); Est GFR (African American) 95.9; Est GFR (Non-African American) 82.8; Globulin 3.7 gm/dl (2.5-4.0); Total Protein 7.5 gm/dl (6.4-8.2); Troponin I 0.031 ng/ml (0-0.045)
[2018-08-22] MEDS: FAMOTIDINE 20 MG TAB PO SCH ×2 (08:25→20:56)
[2018-08-22] MEDS: METOPROLOL TARTRATE 50 MG TAB PO SCH ×3 (08:25→20:56)
[2018-08-22] MEDS: MAGNESIUM OXIDE 400 MG TAB PO SCH (08:25)
[2018-08-22] MEDS: FERROUS SULFATE 325 MG TAB PO SCH (08:25)
[2018-08-22] MEDS: DULOXETINE HCL 60 MG CAP PO SCH (08:26)
[2018-08-22] MEDS: ENOXAPARIN INJ 40 MG/0.4 ML SYR SQ SCH (08:27)
[2018-08-22 08:55] LABS: Potassium 2.8 mmol/L (3.5-5.1)
[2018-08-22 09:00] LABS: Magnesium 1.9 mg/dl (1.8-2.4)
[2018-08-22] MEDS: POTASSIUM CHLORIDE / WTR 10 MEQ/100 ML PLCT IV SCH ×4 (09:55→12:57)
[2018-08-22] MEDS: dilTIAZem HCl 125 MG in DEXTROSE 5% 100 ML IV SCH (12:37)
--- NOTE | 2018-08-22 13:30 | Cardiology Consultation ---
Date of Consultation August 22, 2018 Assessment & Plan (1) Atrial fibrillation, rapid: Fortunately, the patient has converted back to sinus rhythm. This likely occurred as her electrolytes have been repleted. She clearly has a high thromboembolic risk, however, I am not sure that she is a good candidate for long-term anticoagulation. Will discuss this further with her primary care team. (2) Dehydration: Agree with gentle hydration and correction of her electrolyte abnormalities. (3) Hypertension: Adequate control on current medical regimen. (4) Mitral regurgitation: Mild to moderate mitral regurgitation noted on prior echocardiogram. Repeat study pending at this time. History of Present Illness Attending Physician: Khalif Gu History of Present Illness Mrs. Jain is an 88-year-old female admitted yesterday with dehydration and atrial fibrillation with a rapid ventricular response. This consultations were to assist in her cardiac management. The patient claims she is in her usual state of health until approximately 5 days ago. She began to experience nausea, vomiting, and diarrhea. She was unable to keep food or liquid down. She explains that she was beginning to feel dehydrated, and therefore, proceeded to the emergency room for further care. On arrival here, the patient was in atrial fibrillation with a rapid ventricular response. She was felt to be significantly dehydrated and demonstrated hypokalemia and hyponatremia. She was treated with intravenous hydration and potassium supplementation. The patient spontaneously converted to sinus rhythm overnight. At no time did the patient experience palpitations. She denies a prior history of atrial fibrillation. She has never known of a cardiac event. She has never had a cardiac catheterization. Currently, patient is resting comfortably in bed without complaints. Past medical and surgical history 1. Hypertension 2. Hypercholesterolemia 3. Mild to moderate mitral regurgitation 4. Left bundle-branch block 5. GERD 6. Hypothyroidism 7. Iron deficiency anemia 8. DJD 9. Chronic low back pain 10. History of GI bleed 11. Left total hip replacement 12. Spinal stenosis 13. Tonsillectomy 14. Interocular lens implants Social history The patient lives in a personal fpc. Does not use tobacco or alcohol. Family history Noncontributory Review of systems A 10 point review of systems was undertaken and negative except for that described above. Allergies Allergy/AdvReac Type Severity Reaction Status Date / Time mirtazapine Allergy Mild ITCHING Verified 08/21/18 14:24 10/17/09 Home Medications Home Medications Medication Instructions Recorded Confirmed Type acetaminophen 500 mg PO Q4 PRN 04/22/18 08/21/18 History duloxetine 60 mg PO DAILY 04/22/18 08/21/18 History ferrous sulfate [FerrouSul] 325 mg PO QAM 04/22/18 08/21/18 History polyethylene glycol 3350 17 g PO DAILY PRN 04/22/18 08/21/18 History levothyroxine [Synthroid] 75 mcg PO DAILYBB 30 Days #30 tab 05/08/18 08/21/18 Rx magnesium oxide 400 mg PO QAM 30 Days #30 tab 05/08/18 08/21/18 Rx amlodipine 5 mg PO DAILY 08/21/18 08/21/18 History clonazepam 0.5 mg PO BID 08/21/18 08/21/18 History famotidine 20 mg PO BID 08/21/18 08/21/18 History metoprolol tartrate 50 mg PO TID 08/21/18 08/21/18 History Patient History Medical History Diarrhea Toxic encephalopathy (Resolved) HCAP (healthcare-associated pneumonia) (Suspected) Acute hyponatremia (Acute) Falls Mitral regurgitation Abnormal ECG Hypertension (Acute) . 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) Hypomagnesemia (Acute) Hypothyroidism (Chronic) Orthostasis (Acute) Spinal stenosis (Acute) Weakness (Acute) Depression (Inactive) Surgical History History of cataract surgery (Chronic) History of tonsillectomy and adenoidectomy (Chronic) Social History Current Living Situation: Prison Other Information That Helps Us Care for You: No Feels Safe at Home: Yes Safety Concerns: Feels Safe At This Time Smoking Status: Never smoker Hx Alcohol Use: No Hx Substance Use: No Beliefs That Will Affect Care: None Communication Ability: Effective Physical Exam 2 Vital Signs (Past 24 Hours): Last Vital Signs Temp 36.3 C L 08/22/18 12:15 Pulse 83 08/22/18 12:15 Resp 20 08/22/18 12:15 BP 112/71 08/22/18 12:15 Pulse Ox 91 08/22/18 12:15 Results & Data Laboratory Results CBC notes a hemoglobin of 16.1, hematocrit 40.8, white count 9.5, and platelet count of [id number]. Electrolytes notice sodium 136, potassium 2.8, chloride 96, bicarb 30, BUN 3, creatinine 0.57, and glucose of 105. INR is 1.1. Diagnostic Findings EKG notes atrial fibrillation with a rapid ventricular response and a lateral ST and T-wave abnormality. Chest x-ray shows no acute disease. hall monitor now notes sinus rhythm with occasional PACs. _ (1) Mitral regurgitation Cardiac valve disease etiology: nonrheumatic Qualified Code(s): I34.0 - Nonrheumatic mitral (valve) insufficiency (2) Hypertension Hypertension type: unspecified Qualified Code(s): I10 - Essential (primary) hypertension
--- NOTE | 2018-08-22 21:43 | Hospitalist Progress Note ---
Date of Service August 22, 2018 Assessment & Plan (1) Atrial fibrillation, rapid: -Admit to telemetry -New onset A. fib with RVR -Patient was admitted in April 2018 where she did have a bout of possibly A. fib versus atrial ectopy, however it was determined that she had atrial ectopy at that point in time and not A. fib. -Started on a diltiazem drip. Will continue on this. And will transiton to PO meds on 08/23. -Cardiology consulted, Dr. Merino. -Atrial fib likely exacerbated by acute onset of dehydration with associated GI illness including nausea, vomiting, diarrhea. -patient though had history of fall, patient has gotten stronger since then. (2) Dehydration: Patient is off IVF. Patient is tolerating diet -Continue antiemetics with Zofran IV (3) Diarrhea: Bowel movements have decreased in frequency. will continue to monitor. (4) Vomiting: (5) Hypokalemia: Potoassium is being replaced will recheck in AM. Potassium: 2.8 (6) Acute hyponatremia: -Na+ = 131 at time of admission rESOLVED 136 -Secondary to acute GI loss, (7) Hypertension: -Continue amlodipine 5 mg daily, metoprolol tartrate 80 mg p.o. TID bp IS BETTER controlled. (8) Mitral regurgitation: -Murmur heard on exam, stable (9) Iron deficiency: -Continue iron supplementation -Guaiac stool x1 to rule out GI bleed with dark stools as per HPI (10) GERD (gastroesophageal reflux disease): -Continue famotidine 20 mg p.o. bid (11) Arthritis: -Stable, uses walker at baseline -PT/OT eval's (12) Anxiety: -Can continue clonazepam 0.5 mg p.o. bid, (13) DVT prophylaxis: -malena on RLE d/t IO assess on the LLE, lovenox subq Spent 35 minutes. Subjective Patient currently is resting, she has no complaints. On review of systems, patient was complaining hypogastric abd. pain, DUL INTERMITTENT, mild in intensity. Constitutional: no sweats and no malaise Eyes: no diplopia Ear, Nose, Mouth, Throat: no ear trauma Respiratory: no cough Cardiovascular: no dyspnea on exertion Musculoskeletal: no back pain Integumentary: no rash Neurologic: no gait abnormality Endocrine: no polyphagia Physical Exam 2 Vital Signs (Past 24 Hours): Last Vital Signs Temp 36.7 C 08/22/18 19:24 Pulse 67 08/22/18 19:24 Resp 20 08/22/18 19:24 BP 121/77 08/22/18 19:24 Pulse Ox 90 08/22/18 19:24 Physical Exam: General: awake, alert, no apparent distress Head: Normocephalic, atraumatic ENT: PERRL, EOMI, eyes watering but no purulent drainage, no pharyngeal exudate , mucous membranes moist Chest: Clear to auscultation, on 4L via NC, no adventitious breath sounds Cardiac: Irregularly irregular, HR = 110-120 at bedside, + faint systolic murmur grade 2/6, no JVD, normal peripheral pulses, good capillary refill Abdominal: NABS x 4 quadrants, soft, tenderness to hypogastric region, no rebound, guarding or tenderness Extremities: no peripheral edema. Psych: Normal mood and affect Neuro: AAO x 3, strength intact bilaterally and related 5/5, no motor deficits, speech is clear, no peripheral sensory deficits _ (1) Mitral regurgitation Cardiac valve disease etiology: nonrheumatic Qualified Code(s): I34.0 - Nonrheumatic mitral (valve) insufficiency (2) GERD (gastroesophageal reflux disease) Esophagitis presence: esophagitis presence not specified Qualified Code(s): K21.9 - Gastro-esophageal reflux disease without esophagitis (3) Hypertension Hypertension type: unspecified Qualified Code(s): I10 - Essential (primary) hypertension (4) Vomiting Nausea presence: with nausea Vomiting Intractability: unspecified Vomiting type: unspecified Qualified Code(s): R11.2 - Nausea with vomiting, unspecified
[2018-08-23] MEDS: dilTIAZem HCl 125 MG in DEXTROSE 5% 100 ML IV SCH ×2 (05:53→18:05)
[2018-08-23 06:04] LABS: Hematocrit (blood only) 42.6 % (37-47); Hemoglobin 13.7 g/dL (12.0-16.0); Mean Corpuscular Hgb Conc 32.2 g/dL (32-36); Mean Corpuscular Volume 100.7 fL (80-100); Platelet Count 278 K/uL (130-400); RDW Coefficient of Variation 15.6 % (11.5-14.5); RDW Standard Deviation 57.8 fL (36.4-46.3); Red Blood Count 4.23 M/uL (4.2-5.4); White Blood Count 7.47 K/uL (4.8-10.8)
[2018-08-23] MEDS: LEVOTHYROXINE SODIUM 75 MCG TABLET PO SCH (06:04)
[2018-08-23 06:32] LABS: Albumin Level 3.3 gm/dl (3.4-5.0); BUN Creatinine Ratio 10.4 (10-20); Calcium 8.6 mg/dl (8.5-10.1); Creatinine Clr Calc Pharmacy 50.4 ml/min; Est GFR (African American) 91.4; Est GFR (Non-African American) 78.9; Magnesium 1.9 mg/dl (1.8-2.4); Potassium 3.1 mmol/L (3.5-5.1)
[2018-08-23 06:35] LABS: Albumin Globulin Ratio 0.9 (0.9-2); Bilirubin,Total 0.6 mg/dl (0.2-1); Globulin 3.5 gm/dl (2.5-4.0); Total Protein 6.8 gm/dl (6.4-8.2)
[2018-08-23] MEDS: FERROUS SULFATE 325 MG TAB PO SCH (08:50)
[2018-08-23] MEDS: MAGNESIUM OXIDE 400 MG TAB PO SCH (08:50)
[2018-08-23] MEDS: METOPROLOL TARTRATE 50 MG TAB PO SCH ×3 (08:50→20:56)
[2018-08-23] MEDS: FAMOTIDINE 20 MG TAB PO SCH ×2 (08:50→20:56)
[2018-08-23] MEDS: DULOXETINE HCL 60 MG CAP PO SCH (08:50)
[2018-08-23] MEDS: ENOXAPARIN INJ 40 MG/0.4 ML SYR SQ SCH (08:50)
[2018-08-23] MEDS: ACETAMINOPHEN 500 MG TAB PO PRN ×3 (08:53→20:55)
[2018-08-23] MEDS: POTASSIUM CHLORIDE / WTR 10 MEQ/100 ML PLCT IV SCH ×4 (10:46→16:38)
--- NOTE | 2018-08-23 12:49 | Cardiology Progress Note ---
Date of Service August 23, 2018 Assessment & Plan (1) Atrial fibrillation, rapid: Fortunately, she remains in sinus rhythm at this time. Agree with repletion of her potassium. As before, she clearly has a high thromboembolic risk, however, I am not sure that she is a good candidate for long-term anticoagulation. (2) Dehydration: Agree with gentle hydration and correction of her electrolyte abnormalities. (3) Hypertension: Adequate control on current medical regimen. (4) Mitral regurgitation: Mild to moderate mitral regurgitation noted on prior echocardiogram, however, no significant mitral regurgitation on current echocardiogram. Subjective The patient is resting comfortably in bed without complaints of chest pain, dyspnea, or fatigue. Physical Exam 2 Vital Signs (Past 24 Hours): Last Vital Signs Temp 36.7 C 08/23/18 12:20 Pulse 66 08/23/18 12:20 Resp 20 08/23/18 12:20 BP 142/64 H 08/23/18 12:20 Pulse Ox 94 08/23/18 12:20 Physical Exam: In general this is a well-developed well-nourished elderly white female lying supine in bed without complaints. HEENT exam is negative. Neck is supple with full carotid upstrokes. No carotid bruits. Jugular venous pressure is flat at 90 degrees. There is no thyromegaly. Cardiovascular exam reveals a regular rhythm with normal S1 and S2. Heart sounds are distant. No obvious murmurs. Lungs are clear without rales, rhonchi or wheezes. Abdomen is soft without bruits. Extremities reveal intact radial artery pulses bilaterally. Trace pretibial edema is noted. Results & Data Laboratory Results Laboratory Results - last 24 hr 08/23/18 08/23/18 05:47 05:47 WBC 7.47 RBC 4.23 Hgb 13.7 Hct 42.6 MCV 100.7 H MCH 32.4 MCHC 32.2 RDW Std Deviation 57.8 H RDW Coeff of Zeyad 15.6 H Plt Count 278 MPV 10.0 Sodium 138 Potassium 3.1 L Chloride 99 Carbon Dioxide 31 Anion Gap 8.0 BUN 7 Creatinine 0.66 Est Cr Clr Drug Dosing 50.4 Est GFR ( Amer) 91.4 Est GFR (Non-Af Amer) 78.9 BUN/Creatinine Ratio 10.4 Glucose 123 H Calcium 8.6 Magnesium 1.9 Total Bilirubin 0.6 AST 20 ALT 14 Alkaline Phosphatase 111 Total Protein 6.8 Albumin 3.3 L Globulin 3.5 Albumin/Globulin Ratio 0.9 Diagnostic Findings conveyor monitor notes sinus rhythm with frequent PACs. No definite atrial fibrillation. _ (1) Mitral regurgitation Cardiac valve disease etiology: nonrheumatic Qualified Code(s): I34.0 - Nonrheumatic mitral (valve) insufficiency (2) Hypertension Hypertension type: unspecified Qualified Code(s): I10 - Essential (primary) hypertension
--- NOTE | 2018-08-23 14:45 | Hospitalist Progress Note ---
Date of Service August 23, 2018 Assessment & Plan (1) Atrial fibrillation, rapid: -Admit to telemetry -New onset A. fib with RVR -Patient was admitted in April 2018 where she did have a bout of possibly A. fib versus atrial ectopy, however it was determined that she had atrial ectopy at that point in time and not A. fib. Will start cardzime PO 300 mg PO PM, will overlap cardizem drip or one hour. -Cardiology consulted, Dr. Merino. -Atrial fib likely exacerbated by acute onset of dehydration with associated GI illness including nausea, vomiting, diarrhea. -patient though had history of fall, patient has gotten stronger since then as she has attended physical therapy. Updated daughter on the phone. Daughter ok with starting with heparin for now. Will see if patient can take a NOAC (mitral valve regur). will discuss with case management in regards of insurance. (2) Dehydration: Patient is off IVF. Patient is tolerating diet -Continue antiemetics with Zofran IV (3) Diarrhea: Subsided (4) Vomiting: (5) Hypokalemia: Potassium is low on 08/23. Will replace. (6) Acute hyponatremia: -Na+ = 131 at time of admission -Secondary to acute GI loss Resolved (7) Hypertension: -Continue amlodipine 5 mg daily, metoprolol tartrate 80 mg p.o. TID BP is mildly above goal. Will monitor. (8) Mitral regurgitation: -Murmur heard on exam, stable (9) Iron deficiency: -Continue iron supplementation -Guaiac stool x1 to rule out GI bleed with dark stools as per HPI (10) GERD (gastroesophageal reflux disease): -Continue famotidine 20 mg p.o. bid (11) Arthritis: -Stable, uses walker at baseline -PT/OT eval's (12) Anxiety: -Can continue clonazepam 0.5 mg p.o. bid, (13) DVT prophylaxis: -malena on RLE d/t IO assess on the LLE, lovenox subq Spent 37 minutes. Subjective Patient currently is resting, she has no complaints. Patient is less confused. Yesterday, she stated that I was on [employer].'But she now knows that I am not an actor, and that she knows [facility] [employer] [facility]. Patient reports no pain in her hypogastric region today. Physical Exam 2 Vital Signs (Past 24 Hours): Last Vital Signs Temp 36.7 C 08/23/18 12:20 Pulse 66 08/23/18 12:20 Resp 20 08/23/18 12:20 BP 142/64 H 08/23/18 12:20 Pulse Ox 94 08/23/18 12:20 Physical Exam: General: awake, alert, no apparent distress Head: Normocephalic, atraumatic ENT: PERRL, EOMI, eyes watering but no purulent drainage, no pharyngeal exudate , mucous membranes moist Chest: Clear to auscultation, on 2L via NC, no adventitious breath sounds Cardiac: HR regular with PAC, sytolic murmur heard over apex, S1 and S2 heard. Abdominal: NABS x 4 quadrants, soft, tenderness to hypogastric region, no rebound, guarding or tenderness Extremities: no peripheral edema. Psych: Normal mood and affect Neuro: AAO x 3, strength intact bilaterally and related 5/5, no motor deficits, speech is clear, no peripheral sensory deficits _ (1) Mitral regurgitation Cardiac valve disease etiology: nonrheumatic Qualified Code(s): I34.0 - Nonrheumatic mitral (valve) insufficiency (2) GERD (gastroesophageal reflux disease) Esophagitis presence: esophagitis presence not specified Qualified Code(s): K21.9 - Gastro-esophageal reflux disease without esophagitis (3) Hypertension Hypertension type: unspecified Qualified Code(s): I10 - Essential (primary) hypertension (4) Vomiting Nausea presence: with nausea Vomiting Intractability: unspecified Vomiting type: unspecified Qualified Code(s): R11.2 - Nausea with vomiting, unspecified
[2018-08-23] MEDS ORDERED: Heparin IV Standard *NO* Bolus SCH (14:56)
[2018-08-23] MEDS ORDERED: HEPARIN STANDARD DEXTROSE 25,000 UNITS/500 ML IV SCH (16:04)
[2018-08-23 16:14] LABS: INR 1.1 (0.9-1.1); Partial Thromboplastin Time 26.6 Seconds (21.0-31.0); Prothrombin Time 10.7 Seconds (9.0-12.0)
[2018-08-23] MEDS ORDERED: dilTIAZem ER 180 MG CAPCR PO SCH (21:00)
[2018-08-23] MEDS ORDERED: dilTIAZem ER 120 MG CAPCR PO SCH (21:00)
[2018-08-23 22:14] LABS: Partial Thromboplastin Ratio 1.3; Partial Thromboplastin Time 34.9 Seconds (21.0-31.0)
[2018-08-23] MEDS ORDERED: HEPARIN IV BOLUS 4,000 UNITS in SYRINGE 0 ML IV ONE (22:50)
[2018-08-24] MEDS: ACETAMINOPHEN 500 MG TAB PO PRN (02:57)
[2018-08-24] MEDS: LEVOTHYROXINE SODIUM 75 MCG TABLET PO SCH (05:20)
[2018-08-24 06:55] LABS: Hematocrit (blood only) 37.6 % (37-47); Hemoglobin 12.1 g/dL (12.0-16.0); Mean Corpuscular Hgb Conc 32.2 g/dL (32-36); Mean Corpuscular Volume 101.1 fL (80-100); Mean Platelet Volume 10.6 fL (7.4-10.4); Platelet Count 221 K/uL (130-400); RDW Coefficient of Variation 15.6 % (11.5-14.5); RDW Standard Deviation 57.5 fL (36.4-46.3); Red Blood Count 3.72 M/uL (4.2-5.4); White Blood Count 6.09 K/uL (4.8-10.8)
[2018-08-24 07:17] LABS: Albumin Level 2.9 gm/dl (3.4-5.0); BUN Creatinine Ratio 15.5 (10-20); Calcium 8.5 mg/dl (8.5-10.1); Creatinine Clr Calc Pharmacy 46.2 ml/min; Est GFR (African American) 85.2; Est GFR (Non-African American) 73.5; Potassium 3.8 mmol/L (3.5-5.1)
[2018-08-24 07:19] LABS: Albumin Globulin Ratio 0.9 (0.9-2); Bilirubin,Total 0.5 mg/dl (0.2-1); Globulin 3.1 gm/dl (2.5-4.0)
[2018-08-24 07:22] LABS: Partial Thromboplastin Ratio 3.4
[2018-08-24 07:25] LABS: Partial Thromboplastin Time 88.8 Seconds (21.0-31.0)
--- NOTE | 2018-08-24 10:52 | Cardiology Progress Note ---
Date of Service August 24, 2018 Assessment & Plan (1) Atrial fibrillation, rapid: Fortunately, she remains in sinus rhythm at this time. Tolerating diltiazem and metoprolol without difficulty. As before, I feel she is at an elevated fall risk making long-term anticoagulation difficult (2) Dehydration: Resolved. (3) Hypertension: Adequate control on current medical regimen. (4) Mitral regurgitation: Mild to moderate mitral regurgitation noted on prior echocardiogram, however, no significant mitral regurgitation on current echocardiogram. Subjective The patient is resting comfortably in bed without complaints of chest pain, dyspnea, or palpitations. Physical Exam 2 Vital Signs (Past 24 Hours): Last Vital Signs Temp 36.6 C 08/24/18 10:48 Pulse 73 08/24/18 10:48 Resp 18 08/24/18 10:48 BP 151/73 H 08/24/18 10:48 Pulse Ox 94 08/24/18 10:48 Physical Exam: In general this is a well-developed well-nourished elderly white female lying supine in bed without complaints. HEENT exam is negative. Neck is supple with full carotid upstrokes. No carotid bruits. Jugular venous pressure is flat at 90 degrees. There is no thyromegaly. Cardiovascular exam reveals a regular rhythm with normal S1 and S2. Heart sounds are distant. No obvious murmurs. Lungs are clear without rales, rhonchi or wheezes. Abdomen is soft without bruits. Extremities reveal intact radial artery pulses bilaterally. Trace pretibial edema is noted. Results & Data Laboratory Results Laboratory Results - last 24 hr 08/23/18 08/23/18 08/24/18 15:38 21:52 06:13 WBC RBC Hgb Hct MCV MCH MCHC RDW Std Deviation RDW Coeff of Zeyad Plt Count MPV PT 10.7 INR 1.1 APTT 26.6 34.9 H 88.8 H* PTT Ratio 1.0 1.3 3.4 Sodium Potassium Chloride Carbon Dioxide Anion Gap BUN Creatinine Est Cr Clr Drug Dosing Est GFR ( Amer) Est GFR (Non-Af Amer) BUN/Creatinine Ratio Glucose Calcium Magnesium Total Bilirubin AST ALT Alkaline Phosphatase Total Protein Albumin Globulin Albumin/Globulin Ratio 08/24/18 08/24/18 06:13 06:13 WBC 6.09 RBC 3.72 L Hgb 12.1 Hct 37.6 MCV 101.1 H MCH 32.5 MCHC 32.2 RDW Std Deviation 57.5 H RDW Coeff of Zeyad 15.6 H Plt Count 221 MPV 10.6 H PT INR APTT PTT Ratio Sodium 139 Potassium 3.8 D Chloride 101 Carbon Dioxide 31 Anion Gap 7.0 BUN 11 D Creatinine 0.73 Est Cr Clr Drug Dosing 46.2 Est GFR ( Amer) 85.2 Est GFR (Non-Af Amer) 73.5 BUN/Creatinine Ratio 15.5 Glucose 114 H Calcium 8.5 Magnesium 2.0 Total Bilirubin 0.5 AST 13 L ALT 13 Alkaline Phosphatase 91 Total Protein 6.0 L Albumin 2.9 L Globulin 3.1 Albumin/Globulin Ratio 0.9 Diagnostic Findings electronic device monitor notes sinus rhythm with frequent PACs. _ (1) Mitral regurgitation Cardiac valve disease etiology: nonrheumatic Qualified Code(s): I34.0 - Nonrheumatic mitral (valve) insufficiency (2) Hypertension Hypertension type: unspecified Qualified Code(s): I10 - Essential (primary) hypertension
[2018-08-24] MEDS: DULOXETINE HCL 60 MG CAP PO SCH (10:59)
[2018-08-24] MEDS: MAGNESIUM OXIDE 400 MG TAB PO SCH (10:59)
[2018-08-24] MEDS: FERROUS SULFATE 325 MG TAB PO SCH (10:59)
[2018-08-24] MEDS: METOPROLOL TARTRATE 50 MG TAB PO SCH (10:59)
[2018-08-24] MEDS: FAMOTIDINE 20 MG TAB PO SCH (11:00)
[2018-08-24] MEDS ORDERED: APIXABAN 2.5 MG TAB PO ONE (14:00)
--- NOTE | 2018-08-24 14:59 | Discharge Summary ---
Date of Service August 24, 2018 Admission HPI Per Admitting Provider This is a 88 yo F with PMHx of HTN, HLD, mitral regurgitation, hx of falls, hyponatremia, GERD, metabolic disorder, osteoarthritis, iron deficiency anemia who presents from [facility] with increase in dizziness, lightheadedness and found to be tachycardic with a HR of 200 in EMS. She reports having nausea, vomiting and diarrhea and progressively getting weak for about 5 days now. She has not been able to tolerate oral intake over the past 5 days and feels dehydrated. She also became short of breath today and felt her heart beating out of her chest. She cannot confirm if she has had heart palpitations in the past week. She also denies LOC or any sustained trauma recently. Patient notes that her stools have been dark however she is on an iron tablet, no BRBPR, no hx of GI bleed. She is unaware of any sick contacts with GI illnesses. Patient uses a walker to ambulate at baseline. She does not normally require supplemental O2. Pt was found to be in afib with RVR on EKG in the ER. NA 131, K+ 3.0, lactate was 2.7 upon arrival. She is now s/p 1L fluids, and was started on diltiazem gtt. Admission Exam Per Admitting Provider General: awake, alert, no apparent distress Head: Normocephalic, atraumatic ENT: PERRL, EOMI, eyes watering but no purulent drainage, no pharyngeal exudate , mucous membranes moist Chest: Clear to auscultation, on 4L via NC, no adventitious breath sounds Cardiac: Irregularly irregular, HR = 110-120 at bedside, + faint systolic murmur grade 2/6, no JVD, normal peripheral pulses, good capillary refill Abdominal: NABS x 4 quadrants, soft, nontender to palpation, no rebound, guarding or tenderness Extremities: + IO access in the LLE, right toe with abrasions over DIPs, no peripheral edema or erythema, calfs nontender to palpation Psych: Normal mood and affect Neuro: AAO x 3, strength intact bilaterally and related 5/5, no motor deficits, speech is clear, no peripheral sensory deficits Principal Diagnosis paroxysmal atrial fibrillation with RVR Discharge Exam Constitutional WD/WN, vitals as above Eyes PERRL, conjunctivae normal, anicteric sclerae ENMT external ear and nose normal, oropharynx normal Neck trachea midline, no thyromegaly Respiratory normal respiratory effort, lungs clear to auscultation Cardiovascular RRR, no murmur, no edema Gastrointestinal (Abdomen) normal bowel sounds, soft, nontender, no hepatosplenomegaly Musculoskeletal no cyanosis or clubbing, extremities motor strength 5/5 Skin no rashes, warm and dry Neurologic patellar DTR's 2+ bilat, sensation intact and PERRL, EOMI, accommodation nl, no face palsy, no dysarthria Psychiatric Orientation: alert, oriented to person, oriented to place and cooperative; + not oriented to time Lymphatic no cervical or axillary lymphadenopathy Discharge Data Allergies Allergy/AdvReac Type Severity Reaction Status Date / Time mirtazapine Allergy Mild ITCHING Verified 08/21/18 14:24 10/17/09 Consultations 08/21/18 16:30 ED Decision to Admit Stat 08/21/18 18:11 Consult Cardiology Routine Ordered Studies 08/21/18 13:54 CT abd pelvis wo con Stat Hospital Course (1) Atrial fibrillation, rapid: converted to NSR with addition of Cardizem 300mg PO daily will continue this in addition to the metoprolol 50mg TID that she was previously taking discussed anticoagulation with patient's daughter, POA discussed risks vs benefits patient has not been falling ever since going to [facility] [place] [facility] and getting PT/OT daughter would like to start anticoagulation to prevent strokes start Eliquis 2.5mg BID (2) Dehydration: resolved with IV fluids eating and drinking better prior to discharge (3) Diarrhea: Subsided (4) Vomiting: resolved (5) Hypokalemia: resolved with PO replacement (6) Acute hyponatremia: -Na+ = 131 at time of admission -Secondary to acute GI loss Resolved (7) Hypertension: continue Cardizem 300mg daily, metoprolol 50mg TID Norvasc stopped with the addition of Cardizem (8) Mitral regurgitation: -Murmur heard on exam, stable (9) Iron deficiency: -Continue iron supplementation -Guaiac stool x1 to rule out GI bleed with dark stools as per HPI (10) GERD (gastroesophageal reflux disease): -Continue famotidine 20 mg p.o. bid (11) Arthritis: -Stable, uses walker at baseline -PT/OT eval's (12) Anxiety: -Can continue clonazepam 0.5 mg p.o. bid patient requests higher dose of Cymbalta, already on 60mg discussed that pushing dose up to 120mg would provide little to no benefit could consider an adjunct medication, such as Abilify defer to outpatient provider (13) DVT prophylaxis: heparin drip while admitted for afib Total Time Total Time Spent Total Time Spent (In Minutes): 45 minutes Total Time Includes: Examination of the Patient, Discharge Planning, Medication Reconciliation, Communication With Other Providers (cardiology) and Other ( spoke with daughter over the phone twice) Discharge Plan Discharge Items Patient Disposition: Personal Half-Way Reason For Visit: AFIB WITH RVR Discharge Diagnosis: Atrial fibrillation with RVR Condition: Fair Discharge Goals: Improve disease control, Improve function and Increase independence Activity: Per 'Additional Instructions' section Lifting: None Bathing: No limitations Exercise/Sports: Gradually increase as tolerated Non-emergency contact: Primary Care Provider and Point Of Care Specialist Call non-emergency contact if: you have any medication questions, your symptoms worsen and you have a fever Diet: Heart Healthy Addtl Provider Instructions: Medications: - ELIQUIS: 2.5 mg twice a day, next dose is due tomorrow morning - DILTIAZEM: 300mg in the evening, combination of 120mg and 180mg this is a new medication to control heart rate - AMLODIPINE: stopped this medication because Diltiazem was started Atrial fibrillation: presented with a rapid heart rate heart rate controlled, back in normal sinus rhythm continue Metoprolol and Diltiazem to control heart rate Eliquis started, 2.5mg twice a day, for anticoagulation FOLLOW UP - physician at [facility] in one week - Dr. Merino in 4-6 weeks, call for appointment Prescriptions: New diltiazem HCl [Taztia XT] 120 mg Capsule,Extended Release 24 Hr 120 mg PO QPM 30 Days Qty: 30 RF: 3 apixaban [Eliquis] 2.5 mg tablet 2.5 mg PO BID Qty: 60 RF: 3 diltiazem HCl [Tiazac] 180 mg Capsule,Extended Release 24 Hr 180 mg PO QPM 30 Days Qty: 30 RF: 3 Continue polyethylene glycol 3350 17 gram Powder In Packet 17 g PO DAILY PRN (Reason: Constipation) RF: 0 acetaminophen 500 mg Tablet 500 mg PO Q4 PRN (Reason: Pain) RF: 0 ferrous sulfate [FerrouSul] 325 mg (65 mg iron) Tablet 325 mg PO QAM RF: 0 duloxetine 60 mg Capsule,Delayed Release(Dr/Ec) 60 mg PO DAILY RF: 0 levothyroxine [Synthroid] 75 mcg Tablet 75 mcg PO DAILYBB 30 Days Qty: 30 RF: 3 magnesium oxide 400 mg (241.3 mg magnesium) Tablet 400 mg PO QAM 30 Days Qty: 30 RF: 3 clonazepam 0.5 mg tablet 0.5 mg PO BID RF: 0 famotidine 20 mg tablet 20 mg PO BID RF: 0 metoprolol tartrate 50 mg tablet 50 mg PO TID RF: 0 Discontinued amlodipine 5 mg tablet 5 mg PO DAILY RF: 0 Stand-Alone Forms: [facility] Discharge Orders: Discharge Order (Routine); Ordered 08/24/18 Ordered By: [place] Admission Data Admit Date/Time: 08/21/18 17:08 Attending Provider: [place] Admit Provider: Lynette Montoya Primary Care Provider: [facility] HUFFMAN Other Providers: Rafita Merino ; Lynette Montoya Service: Telemetry Other Interventions: Discharge Summary Assessment (RN) Last Done: 08/24/18 13:30 DC Date/Time DO NOT enter until pt leaves facility: 08/24/18 15:35
== END 2018-08-24 15:35 | disposition home or self-care (01) | DRG 309 ==
LOC: ED 13:44 → 2S 17:08 → SUATTDRO 17:08 → 2S 17:28